=== PATIENT | female | born 1985 | race Two or more races ===

== ENCOUNTER 2024-02-15 21:55 | Observation (INO) | payer MEDICAID ==
[~2024-02-15] VITALS: Ht 154.9 cm; Wt 86.0 kg
[~2024-02-15 21:55] MED LIST: CEPH500C PO
[2024-02-16 00:13] VITALS: BP 150/92; PULSE 99; RESP 18; TEMP 98.4; O2SAT 98
== END 2024-02-16 03:34 | disposition home or self-care (01) ==
LOC: ER 21:55 → EDBD 21:55 → LDRP 02-16 01:59 → UNDODISOB 02-16 03:34
PROVIDERS: ADMIT Obstetrics & Gynecology; ATTEND Obstetrics & Gynecology
DX: O9A.212 Injury, poisoning and certain other consequences of external causes complicating pregnancy, second trimester (principal); S83.8X2A Sprain of other specified parts of left knee, initial encounter; S83.8X1A Sprain of other specified parts of right knee, initial encounter; S80.12XA Contusion of left lower leg, initial encounter; Z3A.23 23 weeks gestation of pregnancy; Z79.899 Other long term (current) drug therapy; W01.0XXA Fall on same level from slipping, tripping and stumbling without subsequent striking against object, initial encounter; Y92.512 Supermarket, store or market as the place of occurrence of the external cause; Y93.89 Activity, other specified; Y99.8 Other external cause status
CPT/HCPCS: 73560; 73590; 76815; 81002; 94760; 99284; G0378